=== PATIENT | male | born 2000 | race Caucasian/White ===

== ENCOUNTER 2021-10-07 10:29 | Emergency (ER) | payer MEDICAID ==
[~2021-10-07] VITALS: Ht 165.1 cm; Wt 81.6 kg
[2021-10-07 10:29] VITALS: BP_SYST 154
[2021-10-07] MEDS ORDERED: LIDOCAINE 1% 10 MG/ML, 20 ML MDV SUBCUT ONE (10:45)
[2021-10-07] MEDS ORDERED: CEPH-548 PO (11:22)
[2021-10-07 11:38] VITALS: BP_SYST 132
== END 2021-10-07 11:39 | disposition home or self-care (01) ==
LOC: SED 10:29
DX: S61.421A Laceration with foreign body of right hand, initial encounter (principal); J45.909 Unspecified asthma, uncomplicated; W27.0XXA Contact with workbench tool, initial encounter; Y93.89 Activity, other specified; Y92.89 Other specified places as the place of occurrence of the external cause; Y99.8 Other external cause status
CPT/HCPCS: 12001; 73130; 99283; J2001